=== PATIENT | female | born 1935 | race African-American/Black ===

== ENCOUNTER 2020-11-30 22:33 | Emergency (ER) | payer OTHER ==
[~2020-11-30] VITALS: Ht 160 cm; Wt 84.8 kg
[2020-11-30] MEDS ORDERED: MORPHINE SULFATE 4 MG/ML SYR/VIAL IV ONE (23:15)
[2020-11-30] MEDS ORDERED: ONDANSETRON HCL 4 MG/2 ML VIAL IV ONE (23:15)
[2020-12-01 00:03] LABS: Albumin 3.3 g/dL (3.4-5.0); Amylase 97 U/L (25-115); Anion Gap 5 (5-15); Blood Urea Nitrogen 11 mg/dL (7-18); Calcium 8.8 mg/dL (8.5-10.1); Carbon Dioxide 28 mmol/L (21-32); Chloride 103 mmol/L (98-107); Glucose 168 mg/dL (74-106); Lipase 645 U/L (73-393); Potassium 3.9 mmol/L (3.5-5.1); Sodium 136 mmol/L (136-145)
[2020-12-01 00:09] LABS: Alanine Aminotransferase 110 U/L (13-56); Alkaline Phosphatase 120 U/L (45-117); Aspartate Aminotransferase 139 U/L (15-37); BUN/Creatinine Ratio 14.1; GFR African American 90 mL/min; GFR Non-African American 75 mL/min; Total Protein 7.5 g/dL (6.4-8.2)
[2020-12-01 00:09] LABS: Basophils # (auto) 0 10 ^3/uL (0-0.2); Basophils % (auto) 0.6 % (0.0-2.0); Eosinophils # (auto) 0 10 ^3/uL (0-0.8); Eosinophils % (auto) 0.3 % (0.0-7.0); Hematocrit 29.7 % (36.0-46.0); Hemoglobin 9.8 g/dL (12.2-16.2); Lymphocytes # (auto) 1.3 10 ^3/uL (0.4-5.4); Lymphocytes % (auto) 41.9 % (10.0-50.0); Mean Corpuscular Hemoglobin 30.6 pg (28.0-32.0); Mean Corpuscular Volume 92.5 fL (80.0-100.0); Monocytes # (auto) 0.2 10 ^3/uL (0-1.3); Neutrophils # (auto) 1.6 10 ^3/uL (1.6-8.6); Neutrophils % (auto) 50.2 % (37.0-80.0); Nucleated Red Blood Cells % 0.1 %; Platelet Count (auto) 168 10^3/uL (140-450); Red Blood Cells 3.21 10^6/uL (4.0-5.20); Red Cell Distribution Width 14.7 % (11.8-14.3); White Blood Cell 3.2 10^3/uL (4.4-10.8)
[2020-12-01 05:00] VITALS: BP 158/76
== END 2020-12-01 06:22 | disposition home or self-care (01) ==
LOC: ER 22:36
DX: K80.20 Calculus of gallbladder without cholecystitis without obstruction (principal); I10 Essential (primary) hypertension; Z20.822 Contact with and (suspected) exposure to COVID-19
CPT/HCPCS: 36415; 71250; 74176; 80053; 82150; 83690; 84484; 85025; 87426; 93005

== ENCOUNTER 2021-12-18 07:21 | Inpatient (IN) | payer OTHER ==
[~2021-12-18] VITALS: Ht 160 cm; Wt 73.1 kg
[2021-12-18 08:32] LABS: Basophils # (auto) 0 10 ^3/uL (0-0.2); Basophils % (auto) 0.6 % (0.0-2.0); Eosinophils # (auto) 0 10 ^3/uL (0-0.8); Eosinophils % (auto) 1.1 % (0.0-7.0); Hematocrit 33.9 % (36.0-46.0); Hemoglobin 11.2 g/dL (12.2-16.2); Lymphocytes # (auto) 0.9 10 ^3/uL (0.4-5.4); Lymphocytes % (auto) 31.4 % (10.0-50.0); Mean Corpuscular Hemoglobin 30.5 pg (28.0-32.0); Mean Corpuscular Hgb Conc. 33.1 g/dL (32.0-36.0); Mean Corpuscular Volume 92.1 fL (80.0-100.0); Monocytes # (auto) 0.3 10 ^3/uL (0-1.3); Monocytes % (auto) 11.5 % (0.0-12.0); Neutrophils # (auto) 1.7 10 ^3/uL (1.6-8.6); Neutrophils % (auto) 55.4 % (37.0-80.0); Nucleated Red Blood Cells % 0.3 %; Red Blood Cells 3.68 10^6/uL (4.0-5.20); Red Cell Distribution Width 18.7 % (11.8-14.3)
[2021-12-18 08:54] LABS: INR 1.09 (0.9-1.15); Partial Thromboplastin Time 28.4 sec (23.6-33.0)
[2021-12-18 09:49] LABS: Potassium 3.3 mmol/L (3.5-5.1)
[2021-12-18 10:02] LABS: Albumin 2.5 g/dL (3.4-5.0); BUN/Creatinine Ratio 20.7; Bilirubin, Total 0.5 mg/dL (0.2-1.0); Calcium 8.4 mg/dL (8.5-10.1); Total Protein 6.6 g/dL (6.4-8.2)
[2021-12-18 11:23] LABS: Urine Bacteria FEW /hpf (None Seen); Urine Blood 1+ /uL (Negative); Urine Hyaline Cast FEW /lpf (0 - 2); Urine Specific Gravity 1.015 (1.001-1.035); Urine WBC 27 /hpf (0 - 5)
[2021-12-18] MEDS ORDERED: NITROGLYCERIN 0.4 MG SL TAB SL PRN (12:45)
[2021-12-18] MEDS ORDERED: MORPHINE SULFATE INJECTION 2 MG/ML SYRG IV PRN ×2 (12:45→15:00)
[2021-12-18] MEDS ORDERED: ALBUMIN 25% 100 ML IV ONE (13:30)
[2021-12-18] MEDS: cefTRIAXone 1GM/50ML D5W 50 ML IV ONE ×2 (14:28→19:41)
[2021-12-18] MEDS ORDERED: MULTIPLE VITAMINS W/ MINERALS TAB PO ONE (15:00)
[2021-12-18] MEDS ORDERED: DOCUSATE SOD 100 MG CAP PO PRN (15:00)
[2021-12-18] MEDS ORDERED: LORazepam 0.5 MG TAB PO PRN (15:00)
[2021-12-18] MEDS ORDERED: ONDANSETRON HCL 4 MG/2 ML VIAL IV PRN (15:00)
[2021-12-18] MEDS ORDERED: LACTULOSE 20Gm/30ML SOLN PO PRN (15:00)
[2021-12-18] MEDS ORDERED: FOLIC ACID 1 MG TAB PO ONE (15:00)
[2021-12-18] MEDS ORDERED: IPRATROPIUM BROM 0.5 MG/2.5ML INH SOL NEB ONE (15:00)
[2021-12-18] MEDS ORDERED: FAMOTIDINE (10MG/ML) 2ML VL IV ONE (15:00)
[2021-12-18] MEDS ORDERED: hydrALAZINE HCL 20 MG/ML VL IV PRN (15:00)
[2021-12-18] MEDS ORDERED: SUCRALFATE 1 GM/10 ML ORAL SUSP PO ONE (15:00)
[2021-12-18] MEDS ORDERED: MAGNESIUM SULFATE 1GM/100ML 100 ML IV ONE (15:00)
[2021-12-18] MEDS ORDERED: FERROUS SULFATE 325mg EC TAB PO ONE (15:00)
[2021-12-18] MEDS ORDERED: ACETAMINOPHEN 325 MG TAB PO PRN (15:00)
[2021-12-18] MEDS ORDERED: POTASSIUM CHL 20MEQ/100ML 100 ML IV ONE ×2 (15:00→20:45)
[2021-12-18] MEDS ORDERED: HYDROcodone-ACET 5/325MG TAB PO ONE (15:00)
[2021-12-18] MEDS ORDERED: ENOXAPARIN SOD 30 MG/0.3 ML SYRINGE SC ONE (15:15)
[2021-12-18] MEDS ORDERED: METOPROLOL SUCCINATE XL 50 MG TAB PO ONE (15:15)
[2021-12-18 16:44] VITALS: BP 121/77
[2021-12-18 16:45] LABS: Phosphorus 4.4 mg/dL (2.5-4.90)
[2021-12-18] MEDS ORDERED: IPRATROPIUM BROM 0.5 MG/2.5ML INH SOL NEB SCH (18:00)
[2021-12-18] MEDS: IPRATROPIUM BROM 0.5 MG/2.5ML INH SOL NEB SCH ×2 (18:00→18:40)
[2021-12-18] MEDS ORDERED: ENOXAPARIN SOD 40 MG/0.4 ML SYRINGE SC ONE (18:45)
[2021-12-18 19:17] LABS: INR 1.07 (0.9-1.15); Partial Thromboplastin Time 24.4 sec (23.6-33.0)
[2021-12-18] MEDS: SUCRALFATE 1 GM/10 ML ORAL SUSP PO SCH (19:42)
[2021-12-18] MEDS: SODIUM CHLORIDE 0.9% 1,000 ML IV SCH (19:42)
[2021-12-18] MEDS: FERROUS SULFATE 325mg EC TAB PO SCH (19:43)
[2021-12-18] MEDS ORDERED: ENOXAPARIN SOD 40 MG/0.4 ML SYRINGE SC SCH (22:00)
[2021-12-18 23:12] VITALS: BP_SYST 130
[2021-12-19] VITALS (7 sets, daily range): BP systolic 110–147; BP diastolic 65–81
[2021-12-19] MEDS: ALBUMIN 25% 100 ML IV SCH ×3 (00:34→14:36)
[2021-12-19] MEDS: SUCRALFATE 1 GM/10 ML ORAL SUSP PO SCH ×5 (00:34→22:23)
[2021-12-19] MEDS: ATORVASTATIN 20 MG TAB PO SCH ×2 (00:35→22:24)
[2021-12-19] MEDS: POTASSIUM CHL 20 Meq TABLET PO SCH ×3 (00:35→22:23)
[2021-12-19] MEDS: HEPARIN SODIUM (PORCINE) 5000 UNITS/ML 1ML VIAL SC SCH ×3 (00:36→22:26)
[2021-12-19] MEDS: LEVOTHYROXINE SODIUM 25 MCG TAB PO SCH (06:31)
[2021-12-19 06:44] LABS: Basophils # (auto) 0 10 ^3/uL (0-0.2); Basophils % (auto) 0.7 % (0.0-2.0); Eosinophils # (auto) 0 10 ^3/uL (0-0.8); Eosinophils % (auto) 0.9 % (0.0-7.0); Hematocrit 29.2 % (36.0-46.0); Hemoglobin 10.1 g/dL (12.2-16.2); Lymphocytes # (auto) 0.7 10 ^3/uL (0.4-5.4); Mean Corpuscular Hemoglobin 31.3 pg (28.0-32.0); Mean Corpuscular Hgb Conc. 34.5 g/dL (32.0-36.0); Mean Corpuscular Volume 90.7 fL (80.0-100.0); Monocytes # (auto) 0.4 10 ^3/uL (0-1.3); Monocytes % (auto) 13.5 % (0.0-12.0); Neutrophils # (auto) 1.7 10 ^3/uL (1.6-8.6); Neutrophils % (auto) 58.9 % (37.0-80.0); Red Blood Cells 3.22 10^6/uL (4.0-5.20); White Blood Cell 2.8 10^3/uL (4.4-10.8)
[2021-12-19 06:52] LABS: Red Cell Distribution Width 19.2 % (11.8-14.3)
[2021-12-19] MEDS: IPRATROPIUM BROM 0.5 MG/2.5ML INH SOL NEB SCH ×3 (07:00→19:22)
[2021-12-19 07:29] LABS: Albumin 2.7 g/dL (3.4-5.0); BUN/Creatinine Ratio 31.5; Bilirubin, Total 0.5 mg/dL (0.2-1.0); CRP High Sensitivity 2.76 mg/dL (< 0.3); Calcium 8.5 mg/dL (8.5-10.1); Magnesium 2.3 mg/dL (1.6-2.6); Phosphorus 3.1 mg/dL (2.5-4.90); Total Protein 6.2 g/dL (6.4-8.2); Uric Acid 8.9 mg/dL (2.6-6.0)
[2021-12-19 07:36] LABS: Thyroid Stimulating Hormone 1.61 uIU/mL (0.358-3.74)
[2021-12-19 08:10] LABS: INR 1.12 (0.9-1.15); Partial Thromboplastin Time 32.5 sec (23.6-33.0)
[2021-12-19 10:12] LABS: Amphetamine Screen, Urine NEGATIVE (NEGATIVE); Barbiturate Scree,Urine NEGATIVE (NEGATIVE); Benzodiazephine Screen, Urine NEGATIVE (NEGATIVE); Cannabinoid Screen, Urine NEGATIVE (NEGATIVE); Cocaine Screen, Urine NEGATIVE (NEGATIVE); Opiate Scree,Urine NEGATIVE (NEGATIVE); Phencyclidine Screen, Urine NEGATIVE (NEGATIVE)
[2021-12-19] MEDS: FOLIC ACID 1 MG TAB PO SCH (10:16)
[2021-12-19] MEDS: CHOLECALCIFEROL (VITD3) 2,000 UNIT CAP/TAB PO SCH (10:16)
[2021-12-19] MEDS: MULTIPLE VITAMINS W/ MINERALS TAB PO SCH (10:17)
[2021-12-19] MEDS: ASPirin 81 mg TAB PO SCH (10:17)
[2021-12-19] MEDS: FERROUS SULFATE 325mg EC TAB PO SCH ×3 (10:17→18:00)
[2021-12-19] MEDS: FAMOTIDINE (10MG/ML) 2ML VL IV SCH (10:21)
[2021-12-19] MEDS: cefTRIAXone 1GM/50ML D5W 50 ML IV SCH (11:59)
[2021-12-19] MEDS ORDERED: MORPHINE SULFATE 4 MG/ML SYR/VIAL IV PRN (12:00)
[2021-12-19] MEDS: SODIUM CHLORIDE 0.9% 1,000 ML IV SCH ×2 (12:07→14:00)
[2021-12-19] MEDS: CYANOCOBALAMIN 500 MCG TAB PO SCH (14:39)
[2021-12-19] MEDS ORDERED: IPRATROPIUM BROM 0.5 MG/2.5ML INH SOL NEB PRN (19:30)
[2021-12-20] MEDS: SODIUM CHLORIDE 0.9% 1,000 ML IV SCH ×2 (01:36→11:45)
[2021-12-20 05:00] VITALS: BP 150/92
[2021-12-20] MEDS: SUCRALFATE 1 GM/10 ML ORAL SUSP PO SCH ×4 (06:40→22:03)
[2021-12-20] MEDS: LEVOTHYROXINE SODIUM 25 MCG TAB PO SCH (06:41)
[2021-12-20 09:00] VITALS: BP 128/88
[2021-12-20] MEDS: cefTRIAXone 1GM/50ML D5W 50 ML IV SCH (09:01)
[2021-12-20] MEDS: CHOLECALCIFEROL (VITD3) 2,000 UNIT CAP/TAB PO SCH (09:03)
[2021-12-20] MEDS: ASPirin 81 mg TAB PO SCH (09:03)
[2021-12-20] MEDS: POTASSIUM CHL 20 Meq TABLET PO SCH ×2 (09:04→22:03)
[2021-12-20] MEDS: FOLIC ACID 1 MG TAB PO SCH (09:04)
[2021-12-20] MEDS: MULTIPLE VITAMINS W/ MINERALS TAB PO SCH (09:04)
[2021-12-20] MEDS: CYANOCOBALAMIN 500 MCG TAB PO SCH (09:04)
[2021-12-20] MEDS: FAMOTIDINE (10MG/ML) 2ML VL IV SCH (09:05)
[2021-12-20] MEDS: FERROUS SULFATE 325mg EC TAB PO SCH ×3 (09:05→18:00)
[2021-12-20] MEDS: HEPARIN SODIUM (PORCINE) 5000 UNITS/ML 1ML VIAL SC SCH ×2 (09:06→22:04)
[2021-12-20] MEDS ORDERED: METO25TA93 PO (11:30)
[2021-12-20] MEDS ORDERED: NITR0.4D5 TOP (11:30)
[2021-12-20] MEDS ORDERED: LOS25T PO (11:30)
[2021-12-20] MEDS ORDERED: LEVO75TA6 PO (11:30)
[2021-12-20] MEDS ORDERED: IOHEXOL 350 MG/ML 100ML IJ ONE ×2 (13:00→13:20)
[2021-12-20 13:26] VITALS: BP 128/71
[2021-12-20] MEDS ORDERED: LIDOCAINE 2%HCL (LOCAL ANESTH.) INJ 10ml MDV ONE (14:28)
[2021-12-20 17:03] VITALS: BP 139/84
[2021-12-20 20:00] VITALS: BP 138/63
[2021-12-20 22:00] VITALS: BP 138/63
[2021-12-20] MEDS: ATORVASTATIN 20 MG TAB PO SCH (22:04)
[2021-12-21 05:00] VITALS: BP 113/72
[2021-12-21] MEDS: LEVOTHYROXINE SODIUM 25 MCG TAB PO SCH (06:41)
[2021-12-21] MEDS: SUCRALFATE 1 GM/10 ML ORAL SUSP PO SCH ×4 (06:41→21:12)
[2021-12-21] MEDS: FAMOTIDINE (10MG/ML) 2ML VL IV SCH (07:56)
[2021-12-21] MEDS: HEPARIN SODIUM (PORCINE) 5000 UNITS/ML 1ML VIAL SC SCH ×2 (07:57→21:22)
[2021-12-21] MEDS: MULTIPLE VITAMINS W/ MINERALS TAB PO SCH (08:00)
[2021-12-21] MEDS: cefTRIAXone 1GM/50ML D5W 50 ML IV SCH (08:00)
[2021-12-21] MEDS: CHOLECALCIFEROL (VITD3) 2,000 UNIT CAP/TAB PO SCH (08:00)
[2021-12-21] MEDS: FOLIC ACID 1 MG TAB PO SCH (08:00)
[2021-12-21] MEDS: FERROUS SULFATE 325mg EC TAB PO SCH ×3 (08:00→16:55)
[2021-12-21] MEDS: ASPirin 81 mg TAB PO SCH (08:01)
[2021-12-21] MEDS: CYANOCOBALAMIN 500 MCG TAB PO SCH (08:01)
[2021-12-21] MEDS: POTASSIUM CHL 20 Meq TABLET PO SCH ×2 (08:01→21:13)
[2021-12-21 09:00] VITALS: BP 122/87
[2021-12-21] MEDS ORDERED: ERTAPENEM SOD INJ 1 GM in SODIUM CHL 0.9% 50 ML IV ONE (10:15)
[2021-12-21 16:50] VITALS: BP 109/57
[2021-12-21 20:57] VITALS: BP 109/57
[2021-12-21] MEDS: ATORVASTATIN 20 MG TAB PO SCH (21:12)
[2021-12-21 23:14] VITALS: BP 132/68
[2021-12-22 05:00] VITALS: BP 116/77
[2021-12-22] MEDS: LEVOTHYROXINE SODIUM 25 MCG TAB PO SCH (06:31)
[2021-12-22] MEDS: SUCRALFATE 1 GM/10 ML ORAL SUSP PO SCH ×4 (06:31→21:56)
[2021-12-22] MEDS: ASPirin 81 mg TAB PO SCH (08:43)
[2021-12-22] MEDS: CHOLECALCIFEROL (VITD3) 2,000 UNIT CAP/TAB PO SCH (08:43)
[2021-12-22] MEDS: CYANOCOBALAMIN 500 MCG TAB PO SCH (08:43)
[2021-12-22] MEDS: FERROUS SULFATE 325mg EC TAB PO SCH ×4 (08:43→17:05)
[2021-12-22] MEDS: FOLIC ACID 1 MG TAB PO SCH (08:43)
[2021-12-22] MEDS: FAMOTIDINE (10MG/ML) 2ML VL IV SCH (08:44)
[2021-12-22] MEDS: MULTIPLE VITAMINS W/ MINERALS TAB PO SCH (08:44)
[2021-12-22] MEDS: POTASSIUM CHL 20 Meq TABLET PO SCH ×2 (08:44→21:56)
[2021-12-22] MEDS: ERTAPENEM SOD INJ 1 GM in SODIUM CHL 0.9% 50 ML IV SCH (08:45)
[2021-12-22] MEDS: HEPARIN SODIUM (PORCINE) 5000 UNITS/ML 1ML VIAL SC SCH ×2 (08:46→21:57)
[2021-12-22 08:59] VITALS: BP 110/71
[2021-12-22 12:43] VITALS: BP 128/80
[2021-12-22 13:00] VITALS: BP 128/80
[2021-12-22 16:41] VITALS: BP 127/76
[2021-12-22] MEDS: ATORVASTATIN 20 MG TAB PO SCH (21:56)
[2021-12-22 22:16] VITALS: BP 112/61
[2021-12-23 05:44] VITALS: BP 109/52
[2021-12-23] MEDS: SUCRALFATE 1 GM/10 ML ORAL SUSP PO SCH ×2 (06:37→11:30)
[2021-12-23] MEDS: LEVOTHYROXINE SODIUM 25 MCG TAB PO SCH (06:37)
[2021-12-23 06:55] LABS: BUN/Creatinine Ratio 18.2; Calcium 8.2 mg/dL (8.5-10.1); Potassium 5.1 mmol/L (3.5-5.1)
[2021-12-23 06:59] LABS: Bilirubin, Total 0.6 mg/dL (0.2-1.0); Total Protein 5.2 g/dL (6.4-8.2)
[2021-12-23 09:00] VITALS: BP 116/67
[2021-12-23] MEDS: CHOLECALCIFEROL (VITD3) 2,000 UNIT CAP/TAB PO SCH (09:51)
[2021-12-23] MEDS: MULTIPLE VITAMINS W/ MINERALS TAB PO SCH (09:51)
[2021-12-23] MEDS: FAMOTIDINE (10MG/ML) 2ML VL IV SCH (09:52)
[2021-12-23] MEDS: ASPirin 81 mg TAB PO SCH (09:52)
[2021-12-23] MEDS: CYANOCOBALAMIN 500 MCG TAB PO SCH (09:52)
[2021-12-23] MEDS: FOLIC ACID 1 MG TAB PO SCH (09:52)
[2021-12-23] MEDS: FERROUS SULFATE 325mg EC TAB PO SCH (09:52)
[2021-12-23] MEDS: ERTAPENEM SOD INJ 1 GM in SODIUM CHL 0.9% 50 ML IV SCH (09:52)
[2021-12-23] MEDS: POTASSIUM CHL 20 Meq TABLET PO SCH (10:00)
[2021-12-23] MEDS: HEPARIN SODIUM (PORCINE) 5000 UNITS/ML 1ML VIAL SC SCH (10:01)
[2021-12-23 13:00] VITALS: BP 144/86
== END 2021-12-23 12:00 | disposition home health service (06) | DRG 871 ==
LOC: ER 07:21 → OVERFLOW 12:43 → TELE-EAST 16:00 → EAST 16:10
PROVIDERS: ADMIT Hospitalist; ATTEND Family Medicine
PROC: 05HB33Z Insertion of Infusion Device into Right Basilic Vein, Percutaneous Approach (ICD-10-PCS; principal; 2021-12-20)
PROC: 0W9G3ZZ Drainage of Peritoneal Cavity, Percutaneous Approach (ICD-10-PCS; 2021-12-20)
PROC: B54MZZA Ultrasonography of Right Upper Extremity Veins, Guidance (ICD-10-PCS; 2021-12-20)
DX: A41.9 Sepsis, unspecified organism (principal); K65.2 Spontaneous bacterial peritonitis; K85.10 Biliary acute pancreatitis without necrosis or infection; G93.41 Metabolic encephalopathy; E43 Unspecified severe protein-calorie malnutrition; I21.4 Non-ST elevation (NSTEMI) myocardial infarction; N39.0 Urinary tract infection, site not specified; R18.8 Other ascites; N17.9 Acute kidney failure, unspecified; I13.0 Hypertensive heart and chronic kidney disease with heart failure and stage 1 through stage 4 chronic kidney disease, or unspecified chronic kidney disease; D61.818 Other pancytopenia; K80.70 Calculus of gallbladder and bile duct without cholecystitis without obstruction; E88.09 Other disorders of plasma-protein metabolism, not elsewhere classified; K29.70 Gastritis, unspecified, without bleeding; C54.1 Malignant neoplasm of endometrium; K21.9 Gastro-esophageal reflux disease without esophagitis; N18.32 Chronic kidney disease, stage 3b; R01.1 Cardiac murmur, unspecified; Z20.822 Contact with and (suspected) exposure to COVID-19; B96.20 Unspecified Escherichia coli [E. coli] as the cause of diseases classified elsewhere; E03.9 Hypothyroidism, unspecified; E66.01 Morbid (severe) obesity due to excess calories; E78.5 Hyperlipidemia, unspecified; I50.9 Heart failure, unspecified; I25.10 Atherosclerotic heart disease of native coronary artery without angina pectoris; Z96.643 Presence of artificial hip joint, bilateral; Z86.73 Personal history of transient ischemic attack (TIA), and cerebral infarction without residual deficits; Z90.12 Acquired absence of left breast and nipple; Z68.28 Body mass index [BMI] 28.0-28.9, adult; Z90.710 Acquired absence of both cervix and uterus; Z90.722 Acquired absence of ovaries, bilateral
CPT/HCPCS: 36415; 70450; 71045; 71275; 76700; 76705; 76942; 80053; 80061; 80307; 81001; 82728; 83036; 83615; 83690; 83735; 83880; 84100; 84443; 84484; 84550; 85025; 85048; 85379; 85610; 85652; 85730; 86141; 87040; 87086; 87088; 87186; 87205; 89051; 93005; 93306; 93970; 96365; 96375; G0378; J0696; J1335; J2001; J3480; J3490; P9047